=== PATIENT | male | born 1965 | race Caucasian/White ===

== ENCOUNTER 2025-07-01 12:23 | Emergency (ER) | payer BC, SELFPAY ==
[2025-07-01 13:01] VITALS: BP 130/87; PULSE 85; RESP 18; TEMP 36.7; O2SAT 95; BMI 20.7
--- NOTE | 2025-07-01 14:12 | EDRME_ITS ---
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
[2025-07-01] MEDS: TETRACAINE PF OP SOL 0.5% 4 ML DRPETTE 1 DROP LEFT EYE (15:01)
[2025-07-01] MEDS: FLUORESCEIN SOD 1 MG STRP LEFT EYE (15:02)
== END 2025-07-01 16:42 | disposition left against medical advice (07) ==
PROVIDERS: Emergency Provider Emergency Medicine
DX: Z53.21 Procedure and treatment not carried out due to patient leaving prior to being seen by health care provider (principal)
CPT/HCPCS: 99281